=== PATIENT | male | born 1985 | race Caucasian/White ===

== ENCOUNTER 2018-04-13 16:22 | Emergency (ER) | payer OTHER ==
[~2018-04-13] VITALS: Ht 177.8 cm; Wt 77.1 kg
[~2018-04-13 16:22] MED LIST: ATIVAN1 MG PO; SEROQUEL400 MG PO; VENLAFAXINE HCL75 MG PO; ZOFRAN8 MG PO
== END 2018-04-13 16:55 | disposition home or self-care (01) ==
LOC: ED 16:22
DX: F10.129 Alcohol abuse with intoxication, unspecified (principal)